=== PATIENT | female | born 1975 | race Caucasian/White ===

== ENCOUNTER 2022-06-11 11:23 | Emergency (ER) | payer BC ==
[~2022-06-11] VITALS: Ht 167.6 cm; Wt 67.1 kg
--- NOTE | 2022-06-11 12:14 | NUR ---
DR GLOVER AT BEDSIDE FOR EVAL ACCOMPANIED BY FEMALE STAFF
--- NOTE | 2022-06-11 12:26 | NUR ---
PHLEB TECH AT BEDSIDE FOR BLOOD DRAW.
[2022-06-11] MEDS ORDERED: IOHEXOL-350 100 ML VIAL IV ONE (12:34)
[2022-06-11] MEDS ORDERED: CT SWABBABLE VALVE TRANS SET 1 EA INFUS.SET MC ONE (12:34)
[2022-06-11] MEDS ORDERED: IV NS 0.9% 250 ML IV ONE (12:34)
[2022-06-11] MEDS ORDERED: LORAZEPAM 1 MG TABLET ONE (12:51)
[2022-06-11 12:58] LABS: CALCIUM, SERUM 9.2 mg/dL (8.5-10.1); CREATININE 0.7 mg/dL (0.6-1.3); POTASSIUM 3.9 mmol/L (3.5-5.1)
[2022-06-11] MEDS ORDERED: LORAZEPAM 1 MG TABLET PO ONE (13:00)
[2022-06-11] MEDS ORDERED: ALPR1TAB7 PO (16:09)
[2022-06-11 16:16] VITALS: BP 121/74
== END 2022-06-11 16:16 | disposition home or self-care (01) ==
LOC: ER 11:36
DX: S10.93XA Contusion of unspecified part of neck, initial encounter (principal); F41.9 Anxiety disorder, unspecified; Z60.2 Problems related to living alone; Z79.899 Other long term (current) drug therapy; Y08.89XA Assault by other specified means, initial encounter; Y93.89 Activity, other specified; Y92.89 Other specified places as the place of occurrence of the external cause; Y99.8 Other external cause status
CPT/HCPCS: 99285; 70450; 70498; 80048; 36415; J7050; Q9967